=== PATIENT | male | born 1960 | race Caucasian/White ===

== ENCOUNTER 2017-01-19 12:14 | Emergency (ER) | payer BC ==
[~2017-01-19] VITALS: Ht 177.8 cm; Wt 129.5 kg
[~2017-01-19 12:14] MED LIST: ACCUFLORA PO; ACIDOPHILUS1 CAP PO; APPLE CIDER PO; C 250 PO; GLUCOSAMINE CHO1 CA3 PO; MENS 50+ PO; METAMUCIL0.52 G1 PO; OMEPRAZOLE10 MG PO; SUPER B COMP PO; ZESTORETIC 10-11 TAB PO
[2017-01-19] MEDS ORDERED: TOBRAMYCIN0.3 % OD (13:27)
[2017-01-19 13:57] VITALS: BP 133/82
== END 2017-01-19 14:02 | disposition home or self-care (01) | DRG 115 ==
LOC: ED 12:14
PROC: 08C8XZZ Extirpation of Matter from Right Cornea, External Approach (ICD-10-PCS; principal; 2017-01-19)
DX: T15.01XA Foreign body in cornea, right eye, initial encounter (principal); I10 Essential (primary) hypertension; K21.9 Gastro-esophageal reflux disease without esophagitis; G47.30 Sleep apnea, unspecified; X58.XXXA Exposure to other specified factors, initial encounter; Y93.H3 Activity, building and construction; Y92.009 Unspecified place in unspecified non-institutional (private) residence as the place of occurrence of the external cause

== ENCOUNTER 2022-12-03 07:06 | Emergency (ER) | payer BC ==
[~2022-12-03] VITALS: Ht 177.8 cm; Wt 113.0 kg
[~2022-12-03 07:06] MED LIST changes: +TOBRAMYCIN0.3 % OD
[2022-12-03 07:28] VITALS: BP 154/89
[2022-12-03 07:31] VITALS: BP 146/84
[2022-12-03 07:46] VITALS: BP 146/93
[2022-12-03 08:01] VITALS: BP 140/78
[2022-12-03 08:10] LABS: URINE BILIRUBIN - DIPSTICK NEGATIVE (NEGATIVE); URINE BLOOD DIPSTICK NEGATIVE (NEGATIVE); URINE COLOR YELLOW; URINE GLUCOSE - DIPSTICK NEGATIVE (NEGATIVE); URINE KETONE NEGATIVE (NEGATIVE); URINE LEUK ESTERASE NEGATIVE (NEGATIVE); URINE PROTEIN - DIPSTICK NEGATIVE (NEG-TRACE)
[2022-12-03 08:11] LABS: URINE NITRITE - DIPSTICK NEGATIVE (Negative)
[2022-12-03 08:16] VITALS: BP 128/73
[2022-12-03 08:30] VITALS: BP 128/73
== END 2022-12-03 08:41 | disposition home or self-care (01) | DRG 726 ==
LOC: ED 07:06
PROVIDERS: Family Medicine
PROC: 0T9B70Z Drainage of Bladder with Drainage Device, Via Natural or Artificial Opening (ICD-10-PCS; principal; 2022-12-03)
DX: N40.1 Benign prostatic hyperplasia with lower urinary tract symptoms (principal); R33.8 Other retention of urine; I10 Essential (primary) hypertension

== ENCOUNTER 2023-01-09 18:00 | Inpatient (IN) | payer BC ==
[~2023-01-09] VITALS: Ht 177.8 cm; Wt 113.6 kg
[2023-01-09 18:11] VITALS: BP 132/79
[2023-01-09 18:23] VITALS: BP 100/54
[2023-01-09 18:30] VITALS: BP 105/67
[2023-01-09 19:05] LABS: BASO% 0.2 % (0-3); EOS% 0.3 % (0-8); HEMATOCRIT 39.1 % (39.0-50.0); HEMOGLOBIN 12.6 g/dl (14.0-18.0); IMMATURE GRANULOCYTES 0.5 % (0.0-5.0); LYMPH% 5.8 % (15-41); MEAN CELL VOLUME 91.1 fL CALC (80.0-100.0); MEAN CORPUSCULAR HGB 29.4 pG CALC (26.0-32.0); MEAN CORPUSCULAR HGB CONC 32.2 g/dL CAL (32.0-36.0); MONO% 4.1 % (2-13); NEUT# 17.57 thou/uL (1.82-7.42); NEUT% 89.1 % (42-76); RED BLOOD COUNT 4.29 mill/uL (4.70-6.10); RED CELL DISTRI WIDTH 12.7 % (11.5-15.5)
[2023-01-09 19:13] LABS: ALBUMIN 3.8 g/dL (3.2-5.0); ALKALINE PHOSPHATASE 93 u/l (38-126); ANION GAP 12 (6-22 (CALC)); BILIRUBIN, TOTAL 0.4 mg/dL (0.2-1.3); BUN 7 mg/dL (9-20); BUN/CREATININE RATIO 6 (12-20 (CALC)); CARBON DIOXIDE 22 mmol/l (22-30); CHLORIDE 105 mmol/l (95-108); CREATININE 1.1 mg/dL (0.7-1.3); GFR FOR AFR.AMER. > 60 ML/MIN (>=60 (CALC)); GFR OTHER RACES > 60 ML/MIN (>=60 (CALC)); POTASSIUM 3.9 mmol/l (3.5-5.1); SGOT/AST 21 u/l (17-59); SODIUM 136 mmol/l (137-146); TOTAL PROTEIN 7.7 g/dL (6.3-8.2)
[2023-01-09 23:31] VITALS: BP 110/48
[2023-01-09 23:44] VITALS: BP 110/49
[2023-01-10] VITALS (12 sets, daily range): BP systolic 107–128; BP diastolic 43–63
[2023-01-10] MEDS ORDERED: FINASTERIDE5 MG PO (00:33)
[2023-01-10] MEDS ORDERED: TAMSULOSIN HCL0.4 MG PO (00:34)
[2023-01-10] MEDS ORDERED: AMLODIPINE BESYL5 MG PO (00:34)
[2023-01-10 01:08] LABS: URINE BILIRUBIN - DIPSTICK NEGATIVE (NEGATIVE); URINE COLOR YELLOW; URINE GLUCOSE - DIPSTICK NEGATIVE (NEGATIVE); URINE KETONE NEGATIVE (NEGATIVE); URINE LEUK ESTERASE NEGATIVE (NEGATIVE); URINE PROTEIN - DIPSTICK NEGATIVE (NEG-TRACE); URINE SPECIFIC GRAVITY <=1.005; URINE UROBILINOGEN - DIPSTICK 0.2 E.U./dL (0.2)
[2023-01-10 01:12] LABS: URINE BLOOD DIPSTICK NEGATIVE (NEGATIVE); URINE NITRITE - DIPSTICK NEGATIVE (Negative)
[2023-01-11 00:38] VITALS: BP 121/59
[2023-01-11 00:40] VITALS: BP 116/48
[2023-01-11 04:05] VITALS: BP 115/63
[2023-01-11 04:44] VITALS: BP 115/63
[2023-01-11 05:37] LABS: BASO% 0.1 % (0-3); EOS% 1.6 % (0-8); HEMATOCRIT 34.7 % (39.0-50.0); HEMOGLOBIN 11.3 g/dl (14.0-18.0); IMMATURE GRANULOCYTES 0.3 % (0.0-5.0); LYMPH% 10.4 % (15-41); MEAN CELL VOLUME 92.8 fL CALC (80.0-100.0); MEAN CORPUSCULAR HGB 30.2 pG CALC (26.0-32.0); MEAN CORPUSCULAR HGB CONC 32.6 g/dL CAL (32.0-36.0); MONO% 5.8 % (2-13); NEUT# 12.86 thou/uL (1.82-7.42); NEUT% 81.8 % (42-76); RED BLOOD COUNT 3.74 mill/uL (4.70-6.10); RED CELL DISTRI WIDTH 12.7 % (11.5-15.5)
[2023-01-11 08:15] VITALS: BP 136/78
[2023-01-11 19:15] VITALS: BP 136/78
[2023-01-12 04:47] VITALS: BP 136/78
[2023-01-12 07:31] VITALS: BP 133/67
[2023-01-12 16:00] VITALS: BP 133/67
[2023-01-12 17:11] VITALS: BP 124/70
[2023-01-12 20:17] VITALS: BP 120/70
[2023-01-12 23:51] VITALS: BP 132/51
[2023-01-13] VITALS (17 sets, daily range): BP systolic 100–140; BP diastolic 50–102
[2023-01-14 04:14] VITALS: BP 106/53
[2023-01-14 07:23] VITALS: BP 130/73
[2023-01-14 15:29] VITALS: BP 136/73
[2023-01-14 19:09] VITALS: BP 130/73
[2023-01-15 03:06] VITALS: BP 124/64
[2023-01-15 05:48] LABS: BASO% 0.4 % (0-3); EOS% 2.6 % (0-8); HEMATOCRIT 32.3 % (39.0-50.0); HEMOGLOBIN 10.4 g/dl (14.0-18.0); IMMATURE GRANULOCYTES 0.8 % (0.0-5.0); LYMPH% 20.8 % (15-41); MEAN CELL VOLUME 91.5 fL CALC (80.0-100.0); MEAN CORPUSCULAR HGB 29.5 pG CALC (26.0-32.0); MEAN CORPUSCULAR HGB CONC 32.2 g/dL CAL (32.0-36.0); MONO% 10.3 % (2-13); NEUT# 5.09 thou/uL (1.82-7.42); NEUT% 65.1 % (42-76); RED BLOOD COUNT 3.53 mill/uL (4.70-6.10); RED CELL DISTRI WIDTH 12.6 % (11.5-15.5)
[2023-01-15 06:15] VITALS: BP 127/63
[2023-01-15 08:46] VITALS: BP 127/63
[2023-01-15] MEDS ORDERED: CIPROFLOXACN500 MG PO (10:29)
[2023-01-15] MEDS ORDERED: PERCOCET 5/325M1 TAB PO (10:30)
== END 2023-01-15 13:41 | DRG 346 ==
LOC: ED 18:00 → ED-I 21:00 → ED 21:04 → MS2 21:05
PROVIDERS: Nurse Practitioner; ADMIT Surgery; ATTEND Surgery
PROC: 0D9P0ZZ Drainage of Rectum, Open Approach (ICD-10-PCS; principal; 2023-01-10)
PROC: 0JBB0ZZ Excision of Perineum Subcutaneous Tissue and Fascia, Open Approach (ICD-10-PCS; 2023-01-13)
DX: K61.1 Rectal abscess (principal); I10 Essential (primary) hypertension; E66.9 Obesity, unspecified; B96.20 Unspecified Escherichia coli [E. coli] as the cause of diseases classified elsewhere; F17.200 Nicotine dependence, unspecified, uncomplicated
CPT/HCPCS: C9290; J0131; Q9967